=== PATIENT | male | born 1985 | race Hispanic/Latino ===

== ENCOUNTER 2017-02-28 01:44 | Emergency (ER) | payer OTHER ==
[2017-02-28 01:58] VITALS: BP 139/90; PULSE 114; RESP 20; TEMP 98; O2SAT 97
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
== END 2017-02-28 03:00 | disposition home or self-care (01) ==
LOC: H.ER 01:44
DX: S09.90XA Unspecified injury of head, initial encounter (principal); S00.33XA Contusion of nose, initial encounter; Y04.0XXA Assault by unarmed brawl or fight, initial encounter; Y92.89 Other specified places as the place of occurrence of the external cause